=== PATIENT | male | born 1970 | race African-American/Black ===

== ENCOUNTER 2020-06-17 11:56 | Emergency (ER) | payer MEDICAID ==
[~2020-06-17] VITALS: Ht 193 cm; Wt 90.0 kg
[2020-06-17] MEDS ORDERED: IBUPROFEN 600MG TABLET PO ONE (12:45)
[2020-06-17 12:56] VITALS: BP 123/76
== END 2020-06-17 14:08 | disposition home or self-care (01) ==
LOC: ER 11:56
DX: S60.222A Contusion of left hand, initial encounter (principal); W18.39XA Other fall on same level, initial encounter; Y93.89 Activity, other specified; Y92.89 Other specified places as the place of occurrence of the external cause; Y99.8 Other external cause status; Z98.890 Other specified postprocedural states
CPT/HCPCS: 73130; 99283